=== PATIENT | male | born 1950 | race Caucasian/White ===

== ENCOUNTER 2018-05-29 06:54 | Emergency (ER) | payer OTHER ==
[~2018-05-29] VITALS: Ht 180.3 cm; Wt 108.9 kg
[~2018-05-29 06:54] MED LIST: AMLO5; ASPI325; CIPR500 PO; LOSA50; OXYACE5T; OXYC5; TRAM50
[2018-05-29] MEDS ORDERED: CYCL10 PO (07:21)
== END 2018-05-29 07:25 | disposition home or self-care (01) ==
LOC: ER 06:54
DX: S29.012A Strain of muscle and tendon of back wall of thorax, initial encounter (principal); Z79.899 Other long term (current) drug therapy; Z79.82 Long term (current) use of aspirin; Z87.891 Personal history of nicotine dependence; X58.XXXA Exposure to other specified factors, initial encounter
CPT/HCPCS: 99283

== ENCOUNTER 2018-11-23 06:27 | Emergency (ER) | payer OTHER ==
[~2018-11-23] VITALS: Ht 180.3 cm; Wt 108.9 kg
[~2018-11-23 06:27] MED LIST changes: +CYCL10 PO
[2018-11-23 08:07] LABS: BASOPHILS ABSOLUTE AUTO 0.06 K/mm3 (0.00-0.23); BASOPHILS PERCENT AUTO 1 % (0-2); EOSINOPHILS ABSOLUTE AUTO 0.22 K/mm3 (0.00-0.68); EOSINOPHILS PERCENT AUTO 3 % (0-6); Hematocrit 46.2 % (37.0-53.0); Hemoglobin 15.7 g/dL (13.5-17.5); IMMATURE GRAN ABSOLUTE AUTO 0.02 K/mm3 (0.00-0.10); IMMATURE GRAN PERCENT AUTO 0 % (0-1); LYMPHOCYTES ABSOLUTE AUTO 0.97 K/mm3 (0.84-5.20); LYMPHOCYTES PERCENT AUTO 13 % (21-46); MONOCYTES ABSOLUTE AUTO 0.46 K/mm3 (0.16-1.47); MONOCYTES PERCENT AUTO 6 % (4-13); Mean Corpuscular HGB 31.2 pg (26.0-34.0); Mean Corpuscular Volume 92 fL (80-100); Mean Platelet Volume 10.7 fL (9.1-12.4); NEUTROPHILS ABSOLUTE AUTO 5.51 K/mm3 (1.96-9.15); NEUTROPHILS PERCENT AUTO 76 % (41-73); Platelet Count 238 K/mm3 (150-400); RDW Coefficient Variation 12.8 % (11.7-14.2); RDW Standard Deviation 42.8 fL (35.1-46.3); Red Blood Cell Count 5.04 M/mm3 (4.30-5.90); White Blood Cell Count 7.24 K/mm3 (4.00-11.30)
[2018-11-23 08:28] LABS: Alanine Aminotransfer (ALT/SGP 26 U/L (12-78); Albumin/Globulin Ratio 1.2 (0.8-1.8); Alk Phos 72 U/L (50-136); Anion Gap 5 mmol/L (6-16); Aspartate Aminotrans (AST/SGOT 15 U/L (12-37); Bilirubin, Total 0.4 mg/dL (0.1-1.0); Blood Urea Nitrogen 14 mg/dL (8-24); Bun/Creatinine Ratio 13.3 (12.0-20.0); CO2, Blood 27 mmol/L (21-32); Calcium, Blood 8.5 mg/dL (8.5-10.1); Chloride, Blood 110 mmol/L (98-108); Creatinine, Blood 1.05 mg/dL (0.60-1.20); Globulin, Blood 3.3 g/dL (2.2-4.0); Glomerular Filtration Rate >60 (60-); Glucose, Blood 110 mg/dL (70-99); Potassium, Blood 3.8 mmol/L (3.5-5.5); Sodium, Blood 142 mmol/L (136-145); Total Protein, Blood 7.3 g/dL (6.4-8.2)
[2018-11-23] MEDS ORDERED: ONDA4ODT MM (09:03)
[2018-11-23] MEDS ORDERED: Motion Sickness25 M1 PO (09:03)
== END 2018-11-23 09:40 | disposition home or self-care (01) ==
LOC: ER 06:27
PROVIDERS: Emergency Medicine
DX: H81.10 Benign paroxysmal vertigo, unspecified ear (principal); Z79.899 Other long term (current) drug therapy; Z79.82 Long term (current) use of aspirin; I10 Essential (primary) hypertension; Z87.891 Personal history of nicotine dependence
CPT/HCPCS: 36415; 70450; 80053; 85025; 93005; 93010; 96374; 99284-25; J2405

== ENCOUNTER → 2019-04-26 | Outpatient (CLI) | payer OTHER ==
[~2019-04-26] MED LIST changes: +Motion Sickness25 M1 PO; +ONDA4ODT MM
[2019-04-27 18:21] LABS: Prostate Specific Antigen 0.826 ng/mL (0.000-4.000)
== END | disposition home or self-care (01) ==
LOC: LAB SHORT 10:30 → LAB 10:30
PROVIDERS: Hospitalist
DX: Z12.5 Encounter for screening for malignant neoplasm of prostate (principal)
CPT/HCPCS: G0103

== ENCOUNTER 2021-01-27 04:40 | Inpatient (IN) | payer OTHER ==
[~2021-01-27] VITALS: Ht 177.8 cm; Wt 98.9 kg
[~2021-01-27 04:40] MED LIST changes: -ASPI325; +Aspir 8181 MG PO; -LOSA50; +LOSA50 PO
[2021-01-27] MEDS ORDERED: Ultram50 MG PO (04:57)
[2021-01-27 06:06] LABS: BASOPHILS ABSOLUTE AUTO 0.08 K/mm3 (0.00-0.23); BASOPHILS PERCENT AUTO 1 % (0-2); EOSINOPHILS ABSOLUTE AUTO 0.36 K/mm3 (0.00-0.68); EOSINOPHILS PERCENT AUTO 4 % (0-6); Hematocrit 44.4 % (37.0-53.0); Hemoglobin 14.8 g/dL (13.5-17.5); IMMATURE GRAN ABSOLUTE AUTO 0.04 K/mm3 (0.00-0.10); IMMATURE GRAN PERCENT AUTO 1 % (0-1); LYMPHOCYTES ABSOLUTE AUTO 1.52 K/mm3 (0.84-5.20); LYMPHOCYTES PERCENT AUTO 18 % (21-46); MONOCYTES PERCENT AUTO 8 % (4-13); Mean Corpuscular HGB 29.8 pg (26.0-34.0); Mean Corpuscular HGB Conc 33.3 g/dL (31.5-36.5); Mean Corpuscular Volume 89 fL (80-100); Mean Platelet Volume 10.5 fL (9.1-12.4); NEUTROPHILS ABSOLUTE AUTO 5.96 K/mm3 (1.96-9.15); NEUTROPHILS PERCENT AUTO 69 % (41-73); Platelet Count 318 K/mm3 (150-400); RDW Coefficient Variation 12.4 % (11.7-14.2); RDW Standard Deviation 40.6 fL (35.1-46.3); Red Blood Cell Count 4.97 M/mm3 (4.30-5.90); White Blood Cell Count 8.66 K/mm3 (4.00-11.30)
[2021-01-27 06:30] LABS: Alanine Aminotransfer (ALT/SGP 21 U/L (12-78); Albumin, Blood 3.5 g/dL (3.4-5.0); Albumin/Globulin Ratio 0.9 (0.8-1.8); Alk Phos 90 U/L (50-136); Anion Gap 7 mmol/L (6-16); Aspartate Aminotrans (AST/SGOT 10 U/L (12-37); Bilirubin, Total 0.3 mg/dL (0.1-1.0); Blood Urea Nitrogen 18 mg/dL (8-24); Bun/Creatinine Ratio 17.6 (12.0-20.0); CO2, Blood 26 mmol/L (21-32); Calcium, Blood 9.3 mg/dL (8.5-10.1); Chloride, Blood 107 mmol/L (98-108); Creatinine, Blood 1.02 mg/dL (0.60-1.20); Glomerular Filtration Rate >60 (60-); Glucose, Blood 113 mg/dL (70-99); Potassium, Blood 3.9 mmol/L (3.5-5.5); Sodium, Blood 140 mmol/L (136-145); Total Protein, Blood 7.5 g/dL (6.4-8.2)
[2021-01-27 06:48] LABS: Thyroid Stimulating Hormone 0.568 uIU/mL (0.360-4.800); Troponin I <0.015 ng/mL (0.000-0.040)
[2021-01-27 14:57] LABS: Influenza A, PCR NEGATIVE (NEGATIVE); Influenza B, PCR NEGATIVE (NEGATIVE); Resp Syncytial Virus, PCR NEGATIVE (NEGATIVE); SARS-Cov-2 (COVID-19) PCR, MMC NEGATIVE (NEGATIVE)
[2021-01-27 15:10] LABS: CHOL/HDL RATIO 3.9; Cholesterol 147 mg/dL (50-200); HDL Cholesterol 38 mg/dL (>39); LDL/HDL RATIO 2.2; Low Density Lipoprotein Chol 85 mg/dL (0-110); Triglycerides 118 mg/dL (30-160); Very Low Density Lipoprot Chol 23 mg/dL (6-32)
[2021-01-27 17:25] LABS: U Amphetamine Screen Not Detected; U Barbituate Screen Not Detected; U Benzodiazapine Screen DETECTED; U Buprenorphine Screen Not Detected; U Cannabinoids Screen DETECTED; U Cocaine Screen Not Detected; U Methadone Screen Not Detected; U Methamphetamine Screen Not Detected; U Opiates Screen Not Detected; U Oxycodone Screen Not Detected; U Phencyclidine Screen Not Detected; U Propoxyphene Screen Not Detected
--- NOTE | 2021-01-27 18:39 | NUR ---
PATIENT IS ALERT AND ORIENTED AND COOPERATIVE WITH CARE. [facility] [facility] [place]. HE IS UNSTEADY AND VEERS TO THE LEFT WHILE STANDING. C/O HEADACHE, MEDICATED PER EMAR. PATIENT HAS BEEN LAYING IN BED WITH HIS EYES CLOSED SINCE ADMITTED. HE IS . WILL CONTINUE TO MONITOR
--- NOTE | 2021-01-27 21:55 | NUR ---
ON TELE, SUPERVISORY AIDE SENT STRIP OF VERY IRREGULAR HR, PT HAVING SOME VERTIGO, BUT VOICED "NOT BED EARLIER". IN BED WITH HOB ELEVATED. CT RESULTS OF EARLIER, NO NOTED UNDERLYING CAUSE NOTED (SEE CT DOCUMENTATION). BP SLIGHTLY ELEVATED BUT TRENDING DOWN AFTER MEDICATIONS. MD NOTIFIED, DR DELGADO INSTRUCTED TO CONTINUE TO "MONITOR" BUT NO ORDERS OF THIS TIME. CALL LIGHT IN REACH
--- NOTE | 2021-01-28 03:50 | NUR ---
SHIFT SUMMARY PT A&O X4. 2 PERSON ASSIST. PT HAS NOT BEEN OOB THIS SHIFT. PT STS LEFT SIDE OF FACE IS TINGLING. VS TAKEN AT THIS TIME. BP IS ELEVATED, WILL CONTINUE TO MONITOR. PT HR IN MID 40'S TO 50'S. PT STS IS NORMAL FOR HIM. PT HAD CHANGE IN RHYTHM EARLIER THIS EVENING (SEE PREVIOUS NOTE). SAID TO JUST MONITOR HIM. NS STILL INFUSING AT 75/HR. CALL LIGHT WITHIN REACH AND WILL CONTINUE TO MONITOR PT.
[2021-01-28 04:48] LABS: BASOPHILS ABSOLUTE AUTO 0.02 K/mm3 (0.00-0.23); BASOPHILS PERCENT AUTO 0 % (0-2); EOSINOPHILS ABSOLUTE AUTO 0.03 K/mm3 (0.00-0.68); EOSINOPHILS PERCENT AUTO 0 % (0-6); Hemoglobin 15.1 g/dL (13.5-17.5); IMMATURE GRAN ABSOLUTE AUTO 0.05 K/mm3 (0.00-0.10); IMMATURE GRAN PERCENT AUTO 0 % (0-1); LYMPHOCYTES ABSOLUTE AUTO 1.47 K/mm3 (0.84-5.20); LYMPHOCYTES PERCENT AUTO 13 % (21-46); MONOCYTES PERCENT AUTO 8 % (4-13); Mean Corpuscular HGB 29.8 pg (26.0-34.0); Mean Corpuscular HGB Conc 33.6 g/dL (31.5-36.5); Mean Corpuscular Volume 89 fL (80-100); Mean Platelet Volume 10.2 fL (9.1-12.4); NEUTROPHILS ABSOLUTE AUTO 9.17 K/mm3 (1.96-9.15); NEUTROPHILS PERCENT AUTO 79 % (41-73); Platelet Count 335 K/mm3 (150-400); RDW Coefficient Variation 12.5 % (11.7-14.2); Red Blood Cell Count 5.06 M/mm3 (4.30-5.90); White Blood Cell Count 11.64 K/mm3 (4.00-11.30)
[2021-01-28 05:47] LABS: Anion Gap 9 mmol/L (6-16); Blood Urea Nitrogen 17 mg/dL (8-24); Bun/Creatinine Ratio 19.1 (12.0-20.0); CO2, Blood 24 mmol/L (21-32); Calcium, Blood 9.2 mg/dL (8.5-10.1); Chloride, Blood 108 mmol/L (98-108); Creatinine, Blood 0.89 mg/dL (0.60-1.20); Glomerular Filtration Rate >60 (60-); Glucose, Blood 113 mg/dL (70-99); Potassium, Blood 4.6 mmol/L (3.5-5.5); Sodium, Blood 141 mmol/L (136-145)
--- NOTE | 2021-01-28 06:24 | NUR ---
PT UP TO COMMODE, FEELING NAUSEATED. MEDICATED WITH REGLAN PER EMAR
--- NOTE | 2021-01-28 16:33 | NUR ---
SHIFT SUMMARY PATIENT IS ALERT AND ORIENTATED X 4. COOPERATIVE WITH CARE. PATIENT IS A [address]SF[address] [facility] [place]. PATIENT HAS HAD COMPLAINTS OF NAUSEA AND VOMITTING THIS SHIFT. NO COMPLAINTS OF SOB OR PAIN THIS SHIFT. PATIENT HAS BEEN RESTING MOST OF THE SHIFT. PATIENT UNABLE TO EAT OR DRINK ANYTHING OF SUBSTANCE THIS SHIFT. NO ACUTE EVENTS THIS SHIFT. CALL LIGHT IN PLACE. WILL MONITOR UNTIL SHIFT CHANGE.
--- NOTE | 2021-01-29 04:17 | NUR ---
A/OX4. TELE: SB 40-50S W/ PACS. PT DOES ZAINA DOWN, BUT AWARE. PIV LF AC W/ NS @ 75. PT HAS HAD NO C/O OF DIZZINESS, N/V. HE TOLERATED PO MEDS WITH FLUIDS.
[2021-01-29 05:04] LABS: BASOPHILS ABSOLUTE AUTO 0.04 K/mm3 (0.00-0.23); BASOPHILS PERCENT AUTO 0 % (0-2); EOSINOPHILS ABSOLUTE AUTO 0.11 K/mm3 (0.00-0.68); EOSINOPHILS PERCENT AUTO 1 % (0-6); Hematocrit 43.1 % (37.0-53.0); Hemoglobin 14.4 g/dL (13.5-17.5); IMMATURE GRAN ABSOLUTE AUTO 0.04 K/mm3 (0.00-0.10); IMMATURE GRAN PERCENT AUTO 0 % (0-1); LYMPHOCYTES ABSOLUTE AUTO 1.76 K/mm3 (0.84-5.20); LYMPHOCYTES PERCENT AUTO 19 % (21-46); MONOCYTES ABSOLUTE AUTO 0.77 K/mm3 (0.16-1.47); MONOCYTES PERCENT AUTO 8 % (4-13); Mean Corpuscular HGB 29.9 pg (26.0-34.0); Mean Corpuscular HGB Conc 33.4 g/dL (31.5-36.5); Mean Corpuscular Volume 90 fL (80-100); Mean Platelet Volume 10.3 fL (9.1-12.4); NEUTROPHILS ABSOLUTE AUTO 6.57 K/mm3 (1.96-9.15); NEUTROPHILS PERCENT AUTO 71 % (41-73); Platelet Count 288 K/mm3 (150-400); RDW Coefficient Variation 12.6 % (11.7-14.2); RDW Standard Deviation 41.3 fL (35.1-46.3); Red Blood Cell Count 4.81 M/mm3 (4.30-5.90); White Blood Cell Count 9.29 K/mm3 (4.00-11.30)
[2021-01-29 06:17] LABS: Alanine Aminotransfer (ALT/SGP 20 U/L (12-78); Alk Phos 73 U/L (50-136); Anion Gap 7 mmol/L (6-16); Aspartate Aminotrans (AST/SGOT 11 U/L (12-37); Bilirubin, Total 0.4 mg/dL (0.1-1.0); Blood Urea Nitrogen 15 mg/dL (8-24); Bun/Creatinine Ratio 16.9 (12.0-20.0); CO2, Blood 25 mmol/L (21-32); Calcium, Blood 8.7 mg/dL (8.5-10.1); Chloride, Blood 111 mmol/L (98-108); Creatinine, Blood 0.89 mg/dL (0.60-1.20); Glomerular Filtration Rate >60 (60-); Glucose, Blood 83 mg/dL (70-99); Potassium, Blood 4.3 mmol/L (3.5-5.5); Sodium, Blood 143 mmol/L (136-145)
[2021-01-29 13:19] LABS: CHOL/HDL RATIO 3.8; Cholesterol 129 mg/dL (50-200); HDL Cholesterol 34 mg/dL (>39); LDL/HDL RATIO 1.9; Low Density Lipoprotein Chol 65 mg/dL (0-110); Triglycerides 149 mg/dL (30-160); Very Low Density Lipoprot Chol 29 mg/dL (6-32)
--- NOTE | 2021-01-29 16:45 | NUR ---
SHIFT SUMMARY PATIENT IS ALERT AND ORIENTED X4. PATIENT HAS BEEN RESTING MOST OF SHIFT. PATIENT HAS HAD ECHO, HEAD MRI OF WHICH SHOW AN ACUTE CVA. PATIENT HAS VISIBLE DEFICITS AND HAS PT AND OT FOLLOWING FOR CARE. PATIENT HAS HAD LESS NAUSEA, NO VOMITTING, NO SOB OR PAIN. PATIENT HAS TOLERATED MEDICATIONS BETTER TODAY WITH WATER. NO ACUTE EVENTS THIS SHIFT. CALL LIGHT IN PLACE. WILL MONITOR UNTIL SHIFT CHANGE.
--- NOTE | 2021-01-30 05:14 | NUR ---
PT IS A/OX4. HE USES THE URINAL AT BEDSIDE. THE PT NEEDED TO HAVE A BM TO THE BSC AT 0430 W/O SUCCESS. HE LEANS TO HIS LEFT SO 1 PA W/ A GAIT BELT IS APPROPRIATE. OTHEWISE NO OTHER CHANGES. BED ALARM IS ON AND CALL LIGHT IS WITHIN REACH.
--- NOTE | 2021-01-30 17:08 | NUR ---
SHIFT SUMMARY; PATIENT AO X 4 TODAY. [facility] [place] [facility]ERSON ASSIST. PATIENT LEANING TO LEFT NEEDS ASSIST TO REMAIN UPRIGHT. PATIENT WORKING WITH PHYSICAL THERAPY TODAY ABLE TO WALK IN HALLWAY HOWEVER PATIENT TO LEAN TO LEFT WITHOUT WARNING AND IS A FALL RISK. FAMILY COMES TO VISIT PATIENT TODAY. PATIENT IS AGREABLE TO GOING TO IRU. SPOUSE COMES TO ROOM AND IS TEARFUL. HAVING A HARD TIME WITH PATIENTS CVA. WILL SEE IF PALLIATIVE CARE CAN COME SEE PATIENT AND SPOUSE TO OFFER SVC'S ESTELA COX RN
--- NOTE | 2021-01-31 04:50 | NUR ---
SHIFT SUMMARY NO ACUTE CHANGES TO REPORT THIS SHIFT, PT HAS RESTED MOST OF THE NIGHT. STILL COMPLAINS OF A LOBATO. MEDICATED X1 THIS SHIFT WITH EFFECT. SOME DIZZINESS WITH AMBULATION. PT STRENGTH SEEMS TO BE RETURNING AND HE AMBULATES EASIER WITH LESS ASSISTANCE. VTIALS ARE STABLE. PLAN OF CARE REMAINS THE SAME. BED IN LOWEST POSITION, CALL LIGHT WITHIN REACH.
--- NOTE | 2021-01-31 17:53 | NUR ---
SHIFT SUMMARY; PATIENT HAD MRA TODAY. RESULTS ARE PENDING AT THIS TIME. HE ALSO WORKED WITH PT TODAY AND PER PATIENT HE FEELS A LITTLE LESS DIZZY AFTER AMBULATING DOWN HALLWAY AND BACK. [facility] CALLED AND SAYS PAITENT MAY BE TRANSFERRED THERE TOMORROW FOR IRU IF THEY HAVE A BED. PATIENT IS INFORMED AND IS ON BOARD WITH GOING. WILL REMAIN AVAILABLE FOR THIS PAITENT FOR ANY WANTS OR NEEDS UNTIL HAND OFF AT SHIFT CHANGE. ESTELA COX RN
--- NOTE | 2021-02-01 03:59 | NUR ---
SHIFT SUMMARY ADMITTED FOR CVA. FULL CODE. PLAN IS FOR DC TO IRU IN [place] WHEN BED AVAILABLE. PLAN IS FOR OUTPT STRESS TEST WELL. TELEMETRY: ZAINA @ 46 BPM. CALLED HOSPITALIST FOR 1 DOSE OF ULTRAM THIS SHIFT DUE TO SEVERE HEADACHE. PHYSICAL & OCCUPATIONAL THERAPIES WORKING W/THIS PT.
--- NOTE | 2021-02-01 17:39 | NUR ---
SHIFT SUMMARY: NO ACUTE EVENTS. C/O NAUSEA THIS MORNING, ZOFRAN GIVEN WITH RELIEF. TOLERATING PO INTAKE. C/O L SIDED THROBBING LOBATO WITH SOME PHOTOPHOBIA AND DIZZINESS; MEDICATED WITH MECLIZINE AND TRAMADOL WITH ADEQUATE RELIEF. GETTING UP TO BR WITH SBA AND FWW. VISITED FOR A SHORT TIME TODAY.
--- NOTE | 2021-02-02 04:15 | NUR ---
SHIFT SUMMARY ADMITTED FOR CVA. FULL CODE. PLAN IS FOR DC TO IRU IN [place] WHEN BED AVAILABLE. MEDICATED FOR SEVERE HEADACHE THIS SHIFT WITH GOOD EFFECT. PHYSICAL & OCCUPATIONAL THERAPIES ARE WORKING WITH THIS PT. HE IS A&O X4. NO NEW CONCERNS THIS SHIFT
[2021-02-02 06:14] LABS: Hemoglobin 14.4 g/dL (13.5-17.5)
[2021-02-02 07:11] LABS: Anion Gap 7 mmol/L (6-16); Blood Urea Nitrogen 16 mg/dL (8-24); CO2, Blood 25 mmol/L (21-32); Chloride, Blood 110 mmol/L (98-108); Glomerular Filtration Rate >60 (60-); Glucose, Blood 93 mg/dL (70-99); Potassium, Blood 3.8 mmol/L (3.5-5.5); Sodium, Blood 142 mmol/L (136-145)
--- NOTE | 2021-02-02 18:22 | NUR ---
SHIFT SUMMARY: NO ACUTE EVENTS. C/O HEADACHE PAIN, MEDICATED PER EMAR. GETTING UP IN ROOM WITH FWW AND GAIT BELT, GAIT UNSTEADY AT TIMES, INTERMITTENT DIZZINESS. WORKED WITH PHYSICAL THERAPY TODAY. HAD A SHOWER WITH SUPERVISION. AWAITING PLACEMENT IN IRU OR SNF FOR REHAB.
--- NOTE | 2021-02-03 16:29 | NUR ---
PT IS A/OX4, PLEASANT AND COOPERATIVE. THE PT IS UP WITH ASSIST THE PT CONTINUES TO REPORT SOME DIZZINESS WITH AMBULATION. AND HEADACHES TODAY. THE PT WAS GIVEN TYLENOL AND ULTRAM FOR THE LOBATO AND GIVEN MECLAZINE FOR DIZZINESS TODAY SO FAR. THE PT WORKED WITH THE OCCUPATIONAL AND PHYSICAL THERAPIST TODAY. PT APPEARS TO BE BREATHING EASILY ON RA AT THIS TIME. CALL LIGHT IN REACH, WILL CONTINUE TO MONITOR AND ASSESS FOR CHANGES
--- NOTE | 2021-02-03 21:50 | NUR ---
DR jayleen Nichols called to request PRN bowel med & PT gen takes OTC allergy med daily has not had regular BMs, had a 5 day period with no BM recently. Slight coarse voice. gives 1 x order for claritin now & PRN bowel care.
--- NOTE | 2021-02-04 04:22 | NUR ---
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 He is working with Physical therapy and able to ambulate to bathroom with fww & SBA. Uses urinal well with good amts of urine out. improving slight lt partial loss of sensation. On room air with clear lungs. Allergy med claritin given at HS because PT takes over the counter antihistamine daily & was having mild post nasal drip. Irregular bowel movement treated with miralax. Await result. Tylenol 650 mg for lt sided headache helpful when given with 200 mg neurontin. DC planning to [facility] stroke rehab unit when bed available desired by PT. who has no current services except burial or creamation & memorial.
--- NOTE | 2021-02-04 16:24 | NUR ---
PT IS A/OX4, PLEASANT AND COOPERATIVE. UP WITH MINIMAL STAND-BY ASSIST TO THE BATHROOM. THE PT WAS MEDICATED FOR MILD ONSET OF LOBATO THIS AM AND FOR DIZZINESS X1 THIS AFTERNOON,. THE PT DENIED ANY NAUSEA THIS SHIFT SO FAR. CALL LIGHT IN REACH VISITOR AT THE BEDSIDE, WILL CONTINUE TO MONITOR AND ASSESS FOR CHANGES
--- NOTE | 2021-02-05 06:02 | NUR ---
PT with left vert art occulusion continues with mild throbbing headache 4/10 with light sensitivity. PT is working with PT OT making good progress & he seeks intensive stroke rehab on discharge & possible intervention to occluded artery. Med with tylenol 650 mg x 2 with helpful effect. Meclizine helpful for dizziness
--- NOTE | 2021-02-05 16:22 | NUR ---
PT IS A/OX4, PLEASANT AND COOPERATIVE. THE PT IS UP WITH MINIMAL ASSIST [facility] [place]. THE PT DENIED ANY NAUSEA SO FAR THIS SHIFT. THE PT WAS MEDICATED FOR LOBATO PAIN THIS AFTERNOON. PT WAS UP TO SHOWER THIS AM AND TOLERATED IT WELL, THE PT WORKED WITH BOTH THE PHYSICAL AND OCCUPATIONAL THERAPIST TODAY AND AMBULATED OUT IN THE [place]. PT APPEARS TO BE BREATHING EASILY ON RA AT THIS TIME, CALL LIGHT IN REACH. WILL CONTINUE TO MONITOR AND ASSESS FOR CHANGES
--- NOTE | 2021-02-06 04:06 | NUR ---
PATIENT HAS BEEN PLEASANT AND COOPERATIVE WITH STAFF AND CARE PROVIDED. VITALS HAVE REMAINED STABLE. CONTINUES TO HAVE LOBATO's WHICH HE REQUESTS ULTRAM FOR WITH EFFECTIVENSS. PATIENT AWAITING PLACEMENT IN AN IRU FOR FURTHER REHAB. NO OTHER ACUTE CHANGES TO REPORT OF AT THIS TIME. CALL LIGHT WITHIN REACH.
--- NOTE | 2021-02-06 17:07 | NUR ---
SHIFT SUMMARY PATIENT MEDICATED X2 FOR PAIN, MEDICATED X2 FOR VERTIGO. PATIENT DENIES NAUSEA AND SHORTNESS OF BREATH. PATIENT IS A SBA TO THE BATHROOM. PATIENT WORKED WITH OT AND PT TODAY. WALKED IN THE HALLWAY WITH BOTH THERAPIES. PATIENT EATING AND DRINKING WELL. PATIENT ACCEPTED TO [facility] IN [place]. PATIENT HAS TRANSPORT SCHEDULED FOR TOMORROW, 02/07, AT 1100. COVID SWAB DONE. PATIENT IS PLEASANT AND COOPERATIVE WITH CARE.
[2021-02-06 17:27] LABS: Influenza A, PCR NEGATIVE (NEGATIVE); Influenza B, PCR NEGATIVE (NEGATIVE); Resp Syncytial Virus, PCR NEGATIVE (NEGATIVE); SARS-Cov-2 (COVID-19) PCR, MMC NEGATIVE (NEGATIVE)
--- NOTE | 2021-02-07 04:49 | NUR ---
PATIENT HAS HAD NO ACUTE CHANGES TO REPORT OF AT THIS TIME. VITALS HAVE BEEN STABLE. PATIENT SCHEDULED TO TRANSFER TO [facility] AT 1100 THIS MORNING. CALL LIGHT WITHIN REACH.
[2021-02-07] MEDS ORDERED: ATOR10 PO (08:30)
[2021-02-07] MEDS ORDERED: CLOP75 PO (08:31)
[2021-02-07] MEDS ORDERED: DOCU100 PO (08:31)
[2021-02-07] MEDS ORDERED: MECL25 PO (08:32)
[2021-02-07] MEDS ORDERED: PANT20 PO (08:33)
[2021-02-07] MEDS ORDERED: MIRALAX17 GM PO (08:34)
--- NOTE | 2021-02-07 18:44 | NUR ---
SHIFT SUMMARY PT HAS BEEN RESTING COMFORTABLY TODAY, HE WAS MEANT TO DISCHARGE THIS MORNING TO A IRU, BUT HIS INSURANCE PAPERWORK WAS NOT FAXXED OVER PROPERLY SO HE WILL BE DISCHARGING ON WEDNESDAY. HE HAS REALLY ONLY NEEDED ULTRAM AND TYLENOL FOR A HEADACHE, BUT HAS OTHERWISE NO ACUTE CHANGES THIS SHIFT. WILL CONTINUE TO MONITOR.
--- NOTE | 2021-02-08 05:33 | NUR ---
Pt is A/Ox4. He is a SBA to BR w/ FWW. The only c/o of pain is an intermittent headache. He did not have any c/o of a headache this shift. No new changes to report.
--- NOTE | 2021-02-08 16:46 | NUR ---
HELIO ALMODOVAR PT HAS HAD 2 EPISODES OF VERTIGO TODAY REQUIRING MEDICATION. ONCE AFTER BRUSHING HIS TEETH AND ANOTHER AFTER PHYSICAL THERAPY. MEDICATION WORKED FOR THE NAUSEA AND DIZZINESS BOTH TIMES. HE IS STILL EXPECTED TO DISCHARGE ON WEDNESDAY TO THE [facility]. WILL CONTINUE TO MONITOR.
--- NOTE | 2021-02-09 04:08 | NUR ---
The pt. is A/Ox4, no IV, no tele, SBA to BR w/ FWW. He should DC 02/10. He has a tylenol/ultram for headaches that has been working well.
--- NOTE | 2021-02-09 17:12 | NUR ---
SHIFT SUMMARY PT IS AOX4. PT MEDICATED FOR LOBATO X2 PER EMAR. PT DENIES N/V, SOB. PT IS ONE ASSIST IN ROOM AND PLAN IS FOR DC TO IRU TOMORROW. PT HAD A VISITOR THIS SHIFT. NO EVENTS OR PROCEDURES TODAY. PT APPETITE IS GOOD. PT IS IN BED, CALL LIGHT IN REACH, LOW POSITION.
--- NOTE | 2021-02-10 04:43 | NUR ---
PT IS A/OX4. HE SHOULD BE DISCHARGING TO A IRU IN [place]. NO NEW CHANGES TO REPORT.
[2021-02-10 09:53] LABS: Influenza A, PCR NEGATIVE (NEGATIVE); Influenza B, PCR NEGATIVE (NEGATIVE); Resp Syncytial Virus, PCR NEGATIVE (NEGATIVE); SARS-Cov-2 (COVID-19) PCR, MMC NEGATIVE (NEGATIVE)
--- NOTE | 2021-02-10 12:55 | NUR ---
DISCHARGE PATIENT TRANSPORTED VIA WHEELCHAIR TO AMBULANCE. PATIENT DISCHARGING TO IRU IN [place]. DISCHARGE PACKET SENT WITH COMPUTER FORWARDING SYSTEM MARKUP CLERK. DISCHARGE INSTRUCTIONS ALSO GIVEN TO PATIENT. PATIENT STATED UNDERSTANDING. PATIENT HAD NO IV. MEDICATIONS AND PAPERWORK SENT TO IRU. BELONGINGS SENT WITH PATIENT. REPORT CALLED TO LEOPOLDO OLIVER.
== END 2021-02-10 12:47 | DRG 66 ==
LOC: ER 04:40 → ERHOLD 04:41 → MEDS 16:45
PROVIDERS: Emergency Medicine; Family Medicine; Internal Medicine; ADMIT Family Medicine
DX: I63.212 Cerebral infarction due to unspecified occlusion or stenosis of left vertebral artery (principal); Z20.822 Contact with and (suspected) exposure to COVID-19; M54.9 Dorsalgia, unspecified; G89.29 Other chronic pain; I95.1 Orthostatic hypotension; I10 Essential (primary) hypertension; E66.9 Obesity, unspecified; R00.1 Bradycardia, unspecified; Z68.33 Body mass index [BMI] 33.0-33.9, adult; Z98.1 Arthrodesis status; Z98.890 Other specified postprocedural states; Z87.891 Personal history of nicotine dependence; Z79.82 Long term (current) use of aspirin; Z79.899 Other long term (current) drug therapy
CPT/HCPCS: 0241U; 36415; 70450; 70544; 70549; 70551; 80048; 80053; 80061; 84443; 84484; 85014; 85018; 85025; 93005; 93010; 93306; 93880; 96361; 96372; 96374; 96375; 96376; 97110; 97112; 97116; 97162; 97166; 97530; 97535; 99285-25; A9270; A9579; C9113; G0378; J0780; J1650; J2405; J2550; J2765; J7030

== ENCOUNTER → 2022-03-10 | Outpatient (CLI) | payer OTHER ==
[~2022-03-10] MED LIST changes: +ATOR10 PO; +CLOP75 PO; +DOCU100 PO; +MECL25 PO; +MIRALAX17 GM PO; +PANT20 PO; +Ultram50 MG PO
[2022-03-10 15:58] LABS: BASOPHILS ABSOLUTE AUTO 0.06 K/mm3 (0.00-0.23); BASOPHILS PERCENT AUTO 1 % (0-2); EOSINOPHILS ABSOLUTE AUTO 0.29 K/mm3 (0.00-0.68); EOSINOPHILS PERCENT AUTO 4 % (0-6); Hematocrit 45.3 % (37.0-53.0); Hemoglobin 15.1 g/dL (13.5-17.5); IMMATURE GRAN ABSOLUTE AUTO 0.02 K/mm3 (0.00-0.10); IMMATURE GRAN PERCENT AUTO 0 % (0-1); LYMPHOCYTES ABSOLUTE AUTO 1.44 K/mm3 (0.84-5.20); LYMPHOCYTES PERCENT AUTO 18 % (21-46); MONOCYTES ABSOLUTE AUTO 0.68 K/mm3 (0.16-1.47); MONOCYTES PERCENT AUTO 8 % (4-13); Mean Corpuscular HGB 29.3 pg (26.0-34.0); Mean Corpuscular HGB Conc 33.3 g/dL (31.5-36.5); Mean Corpuscular Volume 88 fL (80-100); Mean Platelet Volume 10.4 fL (9.1-12.4); NEUTROPHILS ABSOLUTE AUTO 5.58 K/mm3 (1.96-9.15); NEUTROPHILS PERCENT AUTO 69 % (41-73); Platelet Count 297 K/mm3 (150-400); RDW Coefficient Variation 13.6 % (11.7-14.2); RDW Standard Deviation 44.1 fL (35.1-46.3); Red Blood Cell Count 5.16 M/mm3 (4.30-5.90); White Blood Cell Count 8.07 K/mm3 (4.00-11.30)
[2022-03-10 16:10] LABS: Alanine Aminotransfer (ALT/SGP 32 U/L (12-78); Albumin, Blood 4.1 g/dL (3.4-5.0); Albumin/Globulin Ratio 1.5 (0.8-1.8); Alk Phos 107 U/L (50-136); Anion Gap 4 mmol/L (6-16); Aspartate Aminotrans (AST/SGOT 15 U/L (12-37); Bilirubin, Total 0.4 mg/dL (0.1-1.0); Blood Urea Nitrogen 17 mg/dL (8-24); Bun/Creatinine Ratio 16.5 (12.0-20.0); CHOL/HDL RATIO 2.5; CO2, Blood 28 mmol/L (21-32); Calcium, Blood 9.2 mg/dL (8.5-10.1); Chloride, Blood 108 mmol/L (98-108); Cholesterol 96 mg/dL (50-200); Creatinine, Blood 1.03 mg/dL (0.60-1.20); Globulin, Blood 2.8 g/dL (2.2-4.0); Glomerular Filtration Rate 78 (60-); Glucose, Blood 96 mg/dL (70-99); HDL Cholesterol 38 mg/dL (>39); LDL/HDL RATIO 0.9; Low Density Lipoprotein Chol 35 mg/dL (0-110); Potassium, Blood 4.3 mmol/L (3.5-5.5); Prostate Specific Antigen 0.743 ng/mL (0.000-4.000); Sodium, Blood 140 mmol/L (136-145); Total Protein, Blood 6.9 g/dL (6.4-8.2); Triglycerides 114 mg/dL (30-160); Very Low Density Lipoprot Chol 22 mg/dL (6-32)
== END | disposition home or self-care (01) ==
LOC: LAB SHORT 08:55
PROVIDERS: Hospitalist
DX: Z12.5 Encounter for screening for malignant neoplasm of prostate (principal); E78.1 Pure hyperglyceridemia; I10 Essential (primary) hypertension
CPT/HCPCS: 80053; 80061; 85025; G0103

== ENCOUNTER → 2022-07-13 | Outpatient (CLI) | payer OTHER ==
[2022-07-13 08:28] LABS: BASOPHILS ABSOLUTE AUTO 0.08 K/mm3 (0.00-0.23); BASOPHILS PERCENT AUTO 1 % (0-2); EOSINOPHILS ABSOLUTE AUTO 0.39 K/mm3 (0.00-0.68); EOSINOPHILS PERCENT AUTO 5 % (0-6); Hemoglobin 15.5 g/dL (13.5-17.5); IMMATURE GRAN ABSOLUTE AUTO 0.02 K/mm3 (0.00-0.10); IMMATURE GRAN PERCENT AUTO 0 % (0-1); LYMPHOCYTES ABSOLUTE AUTO 2.02 K/mm3 (0.84-5.20); LYMPHOCYTES PERCENT AUTO 25 % (21-46); MONOCYTES ABSOLUTE AUTO 0.76 K/mm3 (0.16-1.47); MONOCYTES PERCENT AUTO 9 % (4-13); Mean Corpuscular HGB 30.7 pg (26.0-34.0); Mean Corpuscular HGB Conc 34.4 g/dL (31.5-36.5); Mean Corpuscular Volume 89 fL (80-100); Mean Platelet Volume 10.4 fL (9.1-12.4); NEUTROPHILS ABSOLUTE AUTO 4.87 K/mm3 (1.96-9.15); NEUTROPHILS PERCENT AUTO 60 % (41-73); Platelet Count 264 K/mm3 (150-400); RDW Coefficient Variation 13.4 % (11.7-14.2); RDW Standard Deviation 43.6 fL (35.1-46.3); Red Blood Cell Count 5.05 M/mm3 (4.30-5.90); White Blood Cell Count 8.14 K/mm3 (4.00-11.30)
[2022-07-13 08:47] LABS: Albumin/Globulin Ratio 1.2 (0.8-1.8); Bilirubin, Total 0.4 mg/dL (0.1-1.0); Bun/Creatinine Ratio 17.8 (12.0-20.0); Calcium, Blood 8.6 mg/dL (8.5-10.1); Creatinine, Blood 1.07 mg/dL (0.60-1.20); Globulin, Blood 3.4 g/dL (2.2-4.0); Potassium, Blood 4.3 mmol/L (3.5-5.5); Thyroid Stimulating Hormone 2.058 uIU/mL (0.360-4.800); Total Protein, Blood 7.4 g/dL (6.4-8.2)
== END | disposition home or self-care (01) ==
LOC: LAB SHORT 08:20 → LAB 08:20
PROVIDERS: Physician Assistant
DX: R53.83 Other fatigue (principal); R00.1 Bradycardia, unspecified
CPT/HCPCS: 80053; 83880; 84443; 84484; 85025; 87086

== ENCOUNTER 2024-05-13 06:59 | Emergency (ER) | payer OTHER ==
[~2024-05-13] VITALS: Ht 177.8 cm; Wt 98.4 kg
[~2024-05-13 06:59] MED LIST changes: +DYAZIDE 37.5-21 EACH PO; +Norco 5-325 Ta1 EACH PO; +PROP60 PO
[2024-05-13] MEDS ORDERED: NS 1,000 ML IV SCH (08:40)
[2024-05-13 08:54] LABS: BASOPHILS ABSOLUTE AUTO 0.06 K/mm3 (0.00-0.23); BASOPHILS PERCENT AUTO 1 % (0-2); EOSINOPHILS ABSOLUTE AUTO 0.33 K/mm3 (0.00-0.68); EOSINOPHILS PERCENT AUTO 4 % (0-6); Hematocrit 43.8 % (37.0-53.0); Hemoglobin 15.2 g/dL (13.5-17.5); IMMATURE GRAN ABSOLUTE AUTO 0.04 K/mm3 (0.00-0.10); IMMATURE GRAN PERCENT AUTO 1 % (0-1); LYMPHOCYTES PERCENT AUTO 22 % (21-46); MONOCYTES ABSOLUTE AUTO 0.73 K/mm3 (0.16-1.47); MONOCYTES PERCENT AUTO 9 % (4-13); Mean Corpuscular HGB 31.6 pg (26.0-34.0); Mean Corpuscular HGB Conc 34.7 g/dL (31.5-36.5); Mean Corpuscular Volume 91 fL (80-100); Mean Platelet Volume 9.8 fL (9.1-12.4); NEUTROPHILS ABSOLUTE AUTO 4.95 K/mm3 (1.96-9.15); NEUTROPHILS PERCENT AUTO 63 % (41-73); Platelet Count 250 K/mm3 (150-400); RDW Coefficient Variation 13.1 % (11.7-14.2); RDW Standard Deviation 43.7 fL (35.1-46.3); Red Blood Cell Count 4.81 M/mm3 (4.30-5.90); White Blood Cell Count 7.81 K/mm3 (4.00-11.30)
[2024-05-13 09:04] LABS: Albumin, Blood 4.3 g/dL (3.4-5.0); Albumin/Globulin Ratio 1.4 (0.8-1.8); Bilirubin, Total 0.8 mg/dL (0.1-1.0); Bun/Creatinine Ratio 17.1 (12.0-20.0); Calcium, Blood 8.9 mg/dL (8.5-10.1); Creatinine, Blood 1.05 mg/dL (0.60-1.20); Magnesium, Blood 2.3 mg/dL (1.6-2.4); Potassium, Blood 3.8 mmol/L (3.5-5.5); Total Protein, Blood 7.3 g/dL (6.4-8.2)
[2024-05-13 11:00] VITALS: BP 153/73
== END 2024-05-13 11:46 | disposition home or self-care (01) ==
LOC: ER 06:59
PROVIDERS: Student in an Organized Health Care Education/Training Program
DX: R42 Dizziness and giddiness (principal); R55 Syncope and collapse; I69.398 Other sequelae of cerebral infarction; R20.0 Anesthesia of skin; I10 Essential (primary) hypertension; M54.9 Dorsalgia, unspecified; G89.29 Other chronic pain; Z87.891 Personal history of nicotine dependence; Z79.02 Long term (current) use of antithrombotics/antiplatelets; Z79.899 Other long term (current) drug therapy
CPT/HCPCS: 70450; 80053; 83735; 83880; 84484; 85025; 93005; 93010; 99284-25; J7030

== ENCOUNTER 2024-06-07 21:38 | Emergency (ER) | payer OTHER ==
[~2024-06-07] VITALS: Ht 177.8 cm; Wt 98.0 kg
[2024-06-07 22:13] LABS: BASOPHILS ABSOLUTE AUTO 0.08 K/mm3 (0.00-0.23); BASOPHILS PERCENT AUTO 1 % (0-2); EOSINOPHILS ABSOLUTE AUTO 0.33 K/mm3 (0.00-0.68); EOSINOPHILS PERCENT AUTO 4 % (0-6); Hematocrit 44.5 % (37.0-53.0); Hemoglobin 15.4 g/dL (13.5-17.5); IMMATURE GRAN ABSOLUTE AUTO 0.02 K/mm3 (0.00-0.10); IMMATURE GRAN PERCENT AUTO 0 % (0-1); LYMPHOCYTES PERCENT AUTO 32 % (21-46); MONOCYTES ABSOLUTE AUTO 0.75 K/mm3 (0.16-1.47); MONOCYTES PERCENT AUTO 10 % (4-13); Mean Corpuscular HGB 31.7 pg (26.0-34.0); Mean Corpuscular HGB Conc 34.6 g/dL (31.5-36.5); Mean Corpuscular Volume 92 fL (80-100); Mean Platelet Volume 10.2 fL (9.1-12.4); NEUTROPHILS ABSOLUTE AUTO 4.03 K/mm3 (1.96-9.15); NEUTROPHILS PERCENT AUTO 53 % (41-73); Platelet Count 260 K/mm3 (150-400); RDW Coefficient Variation 13.2 % (11.7-14.2); RDW Standard Deviation 44.5 fL (35.1-46.3); Red Blood Cell Count 4.86 M/mm3 (4.30-5.90); White Blood Cell Count 7.61 K/mm3 (4.00-11.30)
[2024-06-07] MEDS ORDERED: NS 1,000 ML IV SCH (22:20)
[2024-06-07 22:42] LABS: Albumin, Blood 4.3 g/dL (3.4-5.0); Albumin/Globulin Ratio 1.4 (0.8-1.8); Bilirubin, Total 0.3 mg/dL (0.1-1.0); Bun/Creatinine Ratio 16.7 (12.0-20.0); Calcium, Blood 9.2 mg/dL (8.5-10.1); Creatinine, Blood 1.08 mg/dL (0.60-1.20); Globulin, Blood 3.1 g/dL (2.2-4.0); Potassium, Blood 3.9 mmol/L (3.5-5.5); Total Protein, Blood 7.4 g/dL (6.4-8.2)
[2024-06-07] MEDS ORDERED: Metoprolol Tartrate 1 MG/ML 5 ML VIAL IV PRN (22:55)
[2024-06-08] MEDS ORDERED: Diltiazem HCl 5 MG / ML 5ML Vial IV ONE (00:10)
[2024-06-08] MEDS ORDERED: dilTIAZem HCL 30 MG TAB PO ONE (00:40)
[2024-06-08 00:45] VITALS: BP 121/85
[2024-06-08] MEDS ORDERED: Apixaban 5 MG Tab PO ONE (00:50)
[2024-06-08] MEDS ORDERED: ELIQUIS5 M2 PO (00:50)
[2024-06-08] MEDS ORDERED: DILT60ER PO (00:50)
== END 2024-06-08 00:57 | disposition home or self-care (01) ==
LOC: ER 21:38
PROVIDERS: Student in an Organized Health Care Education/Training Program
DX: I48.92 Unspecified atrial flutter (principal); Z87.891 Personal history of nicotine dependence; I10 Essential (primary) hypertension; Z79.899 Other long term (current) drug therapy; Z79.890 Hormone replacement therapy; Z79.1 Long term (current) use of non-steroidal anti-inflammatories (NSAID); Z79.51 Long term (current) use of inhaled steroids; Z79.52 Long term (current) use of systemic steroids; Z79.83 Long term (current) use of bisphosphonates
CPT/HCPCS: 71046; 80053; 84484; 85025; 93005; 93010; 96361; 96374; 96375; 99285-25; A9270; J7030

== ENCOUNTER 2025-01-22 13:29 | Emergency (ER) | payer OTHER ==
[~2025-01-22] VITALS: Ht 177.8 cm; Wt 93.4 kg
[~2025-01-22 13:29] MED LIST changes: +DILT60ER PO; +ELIQUIS5 M2 PO
[2025-01-22 15:28] LABS: BASOPHILS ABSOLUTE AUTO 0.09 K/mm3 (0.00-0.23); BASOPHILS PERCENT AUTO 1 % (0-2); EOSINOPHILS ABSOLUTE AUTO 0.43 K/mm3 (0.00-0.68); EOSINOPHILS PERCENT AUTO 4 % (0-6); Hematocrit 44.9 % (37.0-53.0); Hemoglobin 15.4 g/dL (13.5-17.5); IMMATURE GRAN ABSOLUTE AUTO 0.05 K/mm3 (0.00-0.10); IMMATURE GRAN PERCENT AUTO 0 % (0-1); LYMPHOCYTES ABSOLUTE AUTO 1.93 K/mm3 (0.84-5.20); LYMPHOCYTES PERCENT AUTO 16 % (21-46); MONOCYTES ABSOLUTE AUTO 0.79 K/mm3 (0.16-1.47); MONOCYTES PERCENT AUTO 6 % (4-13); Mean Corpuscular HGB Conc 34.3 g/dL (31.5-36.5); Mean Corpuscular Volume 92 fL (80-100); NEUTROPHILS ABSOLUTE AUTO 9.01 K/mm3 (1.96-9.15); NEUTROPHILS PERCENT AUTO 73 % (41-73); NRBC ABSOLUTE 0.00 K/mm3 (0.00-0.02); NRBC Auto 0.0 /100 WBC (0.0-0.2); Platelet Count 351 K/mm3 (150-400); RDW Coefficient Variation 12.6 % (11.7-14.2); RDW Standard Deviation 42.7 fL (35.1-46.3)
[2025-01-22] MEDS ORDERED: Ketorolac Tromethamine 30mg Vial IV ONE (15:30)
[2025-01-22] MEDS ORDERED: Prochlorperazine Edisylate 10 mg Vial IV ONE (15:30)
[2025-01-22 16:00] LABS: Alanine Aminotransfer (ALT/SGP 26.0 U/L (12-78); Albumin, Blood 3.9 g/dL (3.4-5.0); Albumin/Globulin Ratio 0.9 (0.8-1.8); Anion Gap 10.0 mmol/L (3-11); Aspartate Aminotrans (AST/SGOT 23.0 U/L (12-37); Bilirubin, Total 0.6 mg/dL (0.1-1.0); Blood Urea Nitrogen 18.0 mg/dL (8-24); CO2, Blood 26.0 mmol/L (21-32); Calcium, Blood 9.5 mg/dL (8.5-10.1); Chloride, Blood 102.0 mmol/L (98-108); Creatinine, Blood 0.98 mg/dL (0.60-1.20); Globulin, Blood 4.2 g/dL (2.2-4.0); Glucose, Blood 102.0 mg/dL (70-99); Potassium, Blood 4.0 mmol/L (3.5-5.5); Sodium, Blood 134.0 mmol/L (136-145); Total Protein, Blood 8.1 g/dL (6.4-8.2)
[2025-01-22] MEDS ORDERED: DiphenhydrAMINE HCl 50 MG/ML 1ML Vial IV ONE ×2 (16:35→17:45)
[2025-01-22] MEDS ORDERED: NS 1,000 ML IV SCH (16:35)
[2025-01-22 18:32] VITALS: BP 130/60
== END 2025-01-22 18:39 | disposition home or self-care (01) ==
LOC: ER 13:29
PROVIDERS: Physician Assistant
DX: R51.9 Headache, unspecified (principal); Z87.891 Personal history of nicotine dependence; I10 Essential (primary) hypertension
CPT/HCPCS: 70450; 80053; 85025; 96374; 96375; 96376; 99284-25; J0780; J1200; J1790; J1885; J7030